=== PATIENT | male | born 1985 | race Caucasian/White ===

== ENCOUNTER 2021-09-02 13:15 | Outpatient (CLI) | payer OTHER ==
--- NOTE | 2021-09-02 15:25 | MRI Report ---
PROCEDURE: Cervical Spine W/O INDICATIONS: CERVICALGIA TECHNIQUE: Noncontrast sagittal T1 spin echo and T2 fast spin echo, sagittal STIR, foraminal oblique sagittal T2 fast spin echo, and axial gradient echo or T2 fast spin echo through the cervical spine. COMPARISON: None. FINDINGS: Image quality: Excellent. Alignment and Curvature: Normal cervical spine vertebral body height and alignment. Bone Marrow: No suspicious focal marrow signal abnormality or bone marrow edema. Spinal Cord: Visualized spinal cord has normal size and signal. No cerebellar tonsillar herniation. Regional Soft Tissues: Prevertebral and paraspinous soft tissues are normal. C2-C3: No spinal canal stenosis. Facet and uncovertebral hypertrophy contribute to mild bilateral ne ural foraminal narrowing. C3-C4: No spinal canal stenosis. Uncovertebral spurring on the right producing moderate neural fora lucretia narrowing. Trace neural foraminal narrowing on the left due to uncovertebral spurring and disc bulge C4-C5: Posterior disc osteophyte complex flattens the ventral thecal sac without mass effect upon th e cord. Facet and uncovertebral hypertrophy combine to produce mild bilateral neural foraminal narrow ing. C5-C6: Posterior disc-osteophyte complex posteriorly displaces the cord with effacement of both vent ral and dorsal CSF. There is also mild flattening of the ventral cord. Overall moderate spinal canal stenosis. Facet and uncovertebral hypertrophy contribute to moderate bilateral neural foraminal steno sis. C6-C7: Posterior disc-osteophyte complex flattens the ventral cord slightly. Facet and uncovertebral hypertrophy contribute to severe bilateral neural foraminal narrowing. C7-T1: No spinal canal or neural foraminal stenosis. IMPRESSION: Facet and uncovertebral hypertrophy producing severe bilateral neural foraminal stenosis at C6-C7. Co rrelate for any corresponding C7 radicular symptoms. Moderate spinal canal stenosis and moderate bilateral neural foraminal stenosis at C5-C6. Moderate neural foraminal narrowing on the right C3-C4. Reviewed by: Alonso Garcia MD on 09/02/2021 3:23 PM PST Approved by: Alonso Garcia MD on 09/02/2021 3:23 PM PST Station ID: [id number]
== END 2021-09-02 13:16 | disposition home or self-care (01) ==
LOC: DI 13:15
PROVIDERS: ATTEND Nurse Practitioner Family
DX: M47.812 Spondylosis without myelopathy or radiculopathy, cervical region (principal); M48.02 Spinal stenosis, cervical region

== ENCOUNTER 2023-01-08 14:16 | Outpatient (CLI) | payer OTHER ==
--- NOTE | 2023-01-08 18:41 | MRI Report ---
PROCEDURE: LUMBAR SPINE WO INDICATIONS: DORSALGIA TECHNIQUE: Noncontrast sagittal T1 spin echo and T2 fast echo, sagittal STIR, axial T1 and T2 fast spin echo thr ough the lumbar spine. In cases with scoliosis, additional coronal T2 fast spin echo may be performe d. COMPARISON: None. FINDINGS: Image quality: Excellent. Alignment and Curvature: There is normal bony alignment. Bone Marrow: Marrow is of normal overall signal. No acute vertebral body compression fractures. Spinal Cord: Conus medullaris terminates at the L1 level. Visualized cord demonstrates normal signa l and size. Paraspinous Soft Tissues: No paravertebral masses. T11-T12: Moderate loss of disc height and signal are seen. Moderate disc bulge is seen, which is ec centric to the left, with a central/left disc protrusion seen. There is at least moderate left-sided and mild to moderate right-sided neuroforaminal narrowing. Mild to moderate central canal narrowing i s seen. T12-L1: Normal in appearance. L1-L2: The disc height and disc signal are well preserved. Mild disc bulge is seen. A superimpose d central disc protrusion is seen. No significant neural foraminal or central canal narrowing can be seen. L2-L3: Moderate loss of disc height and signal are seen. Moderate disc bulge is seen at this leve l. A superimposed mild central disc extrusion is seen, with mild superior migration of disc material, as on series 3 image 9 and on series 6 images 25 and 26. Note is made of an annular fissure posteri keri. Mild facet hypertrophy is seen. Mild bilateral neural foraminal narrowing is seen. Modera te central canal narrowing is seen. L3-L4: The disc height and disc signal are well preserved. Mild disc bulge is seen. Mild facet hy pertrophy is seen. There is mild right-sided and no significant left-sided neuroforaminal narrowing. No significant central canal narrowing is seen. L4-L5: Medical loss moderate disc bulge is seen, which is eccentric to the left. There is a left fo raminal disc extrusion seen, with superior migration of the disc material, as on series 6 image 40 an d on series 3 image 15. There is moderate to severe left-sided neural foraminal narrowing, with a deg ree of compression upon the exiting left L4 nerve root. Moderate facet hypertrophy is seen. Mild ce ntral canal narrowing is seen. L5-S1: Moderate loss of disc height and signal are seen. Mild disc bulge is seen, with a superimpos ed central/left disc protrusion, which slightly continues into the left neural foramen, as seen on se michael 6 image 48. Note is made of an annular fissure posteriorly. Mild facet hypertrophy is seen. There is mild to moderate left-sided and no significant right-sided neuroforaminal narrowing. Minima l central canal narrowing is seen. IMPRESSION: At the L4-L5 level, there is a left foraminal disc extrusion, with moderate to severe left neuroforam inal narrowing and associated compression upon the exiting left L4 nerve root. At the L2-L3 level, there is a mild central disc extrusion seen. Milder degenerative changes are seen elsewhere. Reviewed by: Narendra Zarate MD on 01/08/2023 5:39 PM JARED Approved by: Narendra Zarate MD on 01/08/2023 5:39 PM JARED Station ID: [id number]
== END 2023-01-08 14:17 | disposition home or self-care (01) ==
LOC: DI 14:16
PROVIDERS: ATTEND Nurse Practitioner Family
DX: M51.16 Intervertebral disc disorders with radiculopathy, lumbar region (principal); M47.26 Other spondylosis with radiculopathy, lumbar region; M51.36 Other intervertebral disc degeneration, lumbar region; M48.061 Spinal stenosis, lumbar region without neurogenic claudication; M51.37 Other intervertebral disc degeneration, lumbosacral region; M48.07 Spinal stenosis, lumbosacral region; M51.27 Other intervertebral disc displacement, lumbosacral region; M47.817 Spondylosis without myelopathy or radiculopathy, lumbosacral region